=== PATIENT | male | born 1990 | race Two or more races ===

== ENCOUNTER 2025-03-23 11:36 | Inpatient (IN) | payer OTHER ==
[2025-03-23 12:03] VITALS: BMI 21.7
[2025-03-23] MEDS ORDERED: MAGNESIUM HYDROX 2400MG/30ML ORAL SUSPENSION 30 ML CUP PO PRN (12:27)
[2025-03-23] MEDS ORDERED: guaiFENesin 600 MG TABLET.ER (FP) PO PRN (12:27)
[2025-03-23] MEDS ORDERED: LOPERAMIDE HCL 2 MG CAPSULE PO PRN (12:27)
[2025-03-23] MEDS ORDERED: IBUPROFEN 600 MG TABLET (FP) PO PRN (12:27)
[2025-03-23] MEDS ORDERED: POLYETHYLENE GLYCOL (HEALTHYLAX) 3350 17 GM PACKET PO PRN (12:27)
[2025-03-23] MEDS ORDERED: IBUPROFEN 400 MG TABLET (FP) PO PRN (12:27)
[2025-03-23] MEDS ORDERED: ACETAMINOPHEN 325 MG TABLET (FP) PO PRN (12:27)
[2025-03-23] MEDS ORDERED: BISMUTH SUBSALICYLATE 524 MG/30 ML PO PRN (12:27)
[2025-03-23] MEDS ORDERED: MAG HYDROX/AL HYDROX/SIMETH 30 ML UNIT-DOSE CUP PO PRN (12:27)
[2025-03-23] MEDS ORDERED: DICYCLOMINE HCL 10 MG CAPSULE PO PRN (12:27)
[2025-03-23] MEDS ORDERED: NALOXONE (NARCAN) HCL 4 MG/0.1 ML SPRAY NS PRN (12:27)
[2025-03-23] MEDS ORDERED: BENZONATATE 200 MG CAPSULE PO PRN (12:27)
[2025-03-23] MEDS ORDERED: TRIMETHOBENZAMIDE HCL 200MG/2ML INJ IM ONE (12:33)
[2025-03-23] MEDS: TRIMETHOBENZAMIDE HCL 200MG/2ML INJ IM ONE (12:36)
[2025-03-23] MEDS: NALTREXONE HCL 50 MG TABLET PO ONE (13:24)
[2025-03-23] MEDS: PANTOPRAZOLE 20 MG TABLET PO SCH (13:24)
[2025-03-23] MEDS: ONDANSETRON *ODT* 4 MG TABLET SL PRN (17:41)
[2025-03-23] MEDS: METHOCARBAMOL 500 MG TABLET PO PRN (22:04)
[2025-03-23] MEDS: THIAMINE 100 MG TABLET PO SCH (22:04)
[2025-03-23] MEDS: MELATONIN 5 MG TABLETS PO SCH (22:04)
[2025-03-24] MEDS: NALTREXONE HCL 50 MG TABLET PO SCH (10:15)
[2025-03-24] MEDS: PRENATAL VITAMINS W/ FOLIC ACID TABLET (FP) PO SCH (10:16)
[2025-03-24 11:34] LABS: MCHC 32.8 g/dl (32.3-36.5); MEAN CELL VOLUME 91.9 fl (79.0-92.2); MEAN PLT VOLUME 9.1 fl (9.4-12.4); RDW 13.7 % (12.0-15.6)
[2025-03-24 12:12] LABS: GLUCOSE,RANDOM 96 mg/dL (74-106); TOT PROT 6.6 g/dl (6.4-8.2)
[2025-03-24 12:13] LABS: CO2 25 mmol/L (21-32)
[2025-03-24 12:15] LABS: ALK PHOS 73 U/L (40-150)
[2025-03-24 12:17] LABS: SGOT/AST 61 U/L (5-34); SGPT/ALT 25 U/L (0-55)
[2025-03-24 12:18] LABS: CREATININE 1.00 mg/dL (0.55-1.3)
[2025-03-25] MEDS: hydrOXYzine PAMOATE 25 MG CAPSULE (FP) PO PRN (10:41)
[2025-03-25] MEDS: NICOTINE POLACRILEX 2 MG GUM BUC PRN (20:36)
[2025-03-26] MEDS: BENZOCAINE/MENTHOL (CHLORASEPTIC ) LOZENGE MM PRN (05:48)
[2025-03-26 09:12] VITALS: BP 119/65; PULSE 87; RESP 17; TEMP 98.1
== END 2025-03-26 09:45 | disposition home or self-care (01) | DRG 775 ==
LOC: YASAS 11:36 → SUATTDRO 11:36 → Y3N 12:49
PROVIDERS: ADMIT Family Medicine; ATTEND Allergy & Immunology
PROC: HZ2ZZZZ Detoxification Services for Substance Abuse Treatment (ICD-10-PCS; principal; 2025-03-23)
DX: F10.230 Alcohol dependence with withdrawal, uncomplicated (principal); F17.210 Nicotine dependence, cigarettes, uncomplicated; K21.9 Gastro-esophageal reflux disease without esophagitis; F41.8 Other specified anxiety disorders
CPT/HCPCS: 36415; 80053; 80307; 85027; 86780; 93005; 93010; Q0162